=== PATIENT | female | born 1985 | race Caucasian/White ===

== ENCOUNTER 2023-04-29 09:26 | Outpatient (OUT) | payer MEDICAID, SELFPAY ==
--- NOTE | 2023-04-29 09:49 | MR_ITS ---
[facility] [id number] Patient Name: JANUARY VARGHESE MRN: [id number] date: 1985 Sex: F Assigned Patient Location: MRI Current Patient Location: MRI Accession/Order Number: [id number] Exam Date: 04/29/2023 09:55 Report Date: 04/29/2023 11:38 At the request of: GUERRERO CARO Procedure: MR shoulder LT wo con MR shoulder LT wo con, 04/29/2023 9:55 AM EDT INDICATION: Internal Derangement Of Left Shoulder M24.812 COMPARISON: There is no appropriate prior study for comparison. TECHNIQUE: Multiplanar and multisequential MR images of the left shoulder were obtained without contrast. FINDINGS: There are mild hypertrophic degenerative changes of AC joint. There is no os acromiale. No Hill-Sachs is noted. No acute fracture or dislocation is noted. The quadrilateral space and supraspinous notch are unremarkable. The T2 prolongation within the insertional portions of supraspinatus and infraspinatus may suggest tendinosis. The long head of biceps and subscapularis and teres minor are unremarkable. The teres minor is unremarkable. No fatty muscle atrophy is noted. The labrum shows no significant abnormality. There is trace intra articular joint effusion. MR/MR shoulder LT wo con IMPRESSION: Mild insertional tendinosis of supraspinatus and infraspinatus. No high-grade tear. Electronically authenticated by: ALEC GONZALEZ Date: 04/29/2023 11:38
== END 2023-04-29 09:27 | disposition home or self-care (01) ==
LOC: MRI 09:28
PROVIDERS: PCP Family Medicine; Visit Provider Physician Assistant
DX: M24.812 Other specific joint derangements of left shoulder, not elsewhere classified (principal)
CPT/HCPCS: 73221